=== PATIENT | male | born 1970 | race Caucasian/White ===

== ENCOUNTER 2018-03-19 00:58 | Emergency (ER) | payer MEDICAID ==
[~2018-03-19] VITALS: Ht 185.4 cm; Wt 112.0 kg
[~2018-03-19 00:58] MED LIST: GLIP10TA13 PO; GLIP5TAB10 PO; HYDR-3240 PO; LISI-170 PO; METF500T17 PO
[2018-03-19] MEDS ORDERED: METHOCARBAMOL 750 MG TABLET ONE (01:25)
[2018-03-19] MEDS ORDERED: KETOROLAC 30 MG/1 ML ONE (01:25)
[2018-03-19] MEDS ORDERED: METHOCARBAMOL 750 MG TABLET PO ONE (01:30)
[2018-03-19] MEDS ORDERED: KETOROLAC 30 MG/1 ML IM ONE (01:30)
--- NOTE | 2018-03-19 01:31 | NUR ---
LABS HAVE BEEN DRAWN. PT MEDICATED FOR PAIN. PT HAS SAFE RIDE HOME WITH
[2018-03-19 01:38] LABS: BASOPHILS # (AUTO) 0.04 x10^3/uL (0-0.1); BASOPHILS % (AUTO) 1 % (0-1); EOSINOPHILS # (AUTO) 0.12 x10^3/uL (0-0.4); EOSINOPHILS % (AUTO) 2 % (1-7); LYMPHOCYTES # (AUTO) 2.32 x10^3/uL (1-3.4); LYMPHOCYTES % (AUTO) 32 % (22-44); MD NO; MEAN CORPUSCULAR HEMOGLOBIN 29.9 pg (27.5-34.5); MEAN CORPUSCULAR HGB CONC 33.8 g/dL (33.2-36.2); MEAN CORPUSCULAR VOLUME 88.6 fL (81-97); MEAN PLATELET VOLUME 8.1 fL (7.4-10.4); MONOCYTES # (AUTO) 0.89 x10^3/uL (0.2-0.8); MONOCYTES % (AUTO) 12 % (2-9); NEUTROPHILS # (AUTO) 3.83 x10^3/uL (1.8-6.8); NEUTROPHILS % (AUTO) 53 % (42-75); PLATELET COUNT 213 x10^3/uL (130-400); RED BLOOD COUNT 4.84 x10^6/uL (4.38-5.82); RED CELL DISTRIBUTION WIDTH 13.8 % (9.4-14.8)
[2018-03-19 01:45] LABS: ALBUMIN 3.4 g/dL (3.4-5.0); ANION GAP 7 mmol/L (5-15); CALCIUM 8.7 mg/dL (8.5-10.1); CHLORIDE 100 mmol/L (98-107); CREATININE 1.08 mg/dL (0.7-1.3)
[2018-03-19 02:02] VITALS: BP 139/79
== END 2018-03-19 02:13 | disposition home or self-care (01) ==
LOC: ED 02:07
DX: E11.65 Type 2 diabetes mellitus with hyperglycemia (principal); E11.42 Type 2 diabetes mellitus with diabetic polyneuropathy; I10 Essential (primary) hypertension; F17.200 Nicotine dependence, unspecified, uncomplicated
CPT/HCPCS: 36415; 80048; 82040; 85025; 96372; 99283; J1885

== ENCOUNTER 2018-04-16 12:57 | Emergency (ER) | payer MEDICAID ==
[~2018-04-16] VITALS: Ht 185.4 cm; Wt 108.2 kg
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
--- NOTE | 2018-04-16 13:54 | NUR ---
md to bedside
[2018-04-16 13:57] LABS: BASOPHILS # (AUTO) 0.03 x10^3/uL (0-0.1); BASOPHILS % (AUTO) 0 % (0-1); EOSINOPHILS # (AUTO) 0.12 x10^3/uL (0-0.4); EOSINOPHILS % (AUTO) 1 % (1-7); LYMPHOCYTES # (AUTO) 2.26 x10^3/uL (1-3.4); LYMPHOCYTES % (AUTO) 26 % (22-44); MD NO; MEAN CORPUSCULAR HEMOGLOBIN 29.4 pg (27.5-34.5); MEAN CORPUSCULAR HGB CONC 33.3 g/dL (33.2-36.2); MEAN CORPUSCULAR VOLUME 88.2 fL (81-97); MEAN PLATELET VOLUME 7.8 fL (7.4-10.4); MONOCYTES # (AUTO) 0.79 x10^3/uL (0.2-0.8); MONOCYTES % (AUTO) 9 % (2-9); NEUTROPHILS # (AUTO) 5.45 x10^3/uL (1.8-6.8); NEUTROPHILS % (AUTO) 63 % (42-75); PLATELET COUNT 231 x10^3/uL (130-400); RED BLOOD COUNT 5.35 x10^6/uL (4.38-5.82); RED CELL DISTRIBUTION WIDTH 13.7 % (9.4-14.8)
[2018-04-16 14:11] LABS: ALANINE AMINOTRANSFERASE 28 U/L (12-78); ALBUMIN 3.6 g/dL (3.4-5.0); ANION GAP 6 mmol/L (5-15); CHLORIDE 100 mmol/L (98-107); CREATININE 1.13 mg/dL (0.7-1.3)
--- NOTE | 2018-04-16 14:12 | NUR ---
pt resting in room with at bedside. no needs at this time. vss. awaiting lab results.
[2018-04-16 14:15] LABS: ALKALINE PHOSPHATASE 93 U/L (45-117); BILIRUBIN,TOTAL 0.5 mg/dL (0.2-1.0); TOTAL PROTEIN 7.2 g/dL (6.4-8.2); TROPONIN I < 0.015 ng/mL (0.000-0.045)
[2018-04-16] MEDS ORDERED: ONDANSETRON ODT 4 MG ONE (14:44)
--- NOTE | 2018-04-16 14:59 | NUR ---
pt reports nausea. md notified. zofran ordered and administered. vss. no other needs at this time.
[2018-04-16] MEDS ORDERED: ONDANSETRON ODT 4 MG PO ONE (15:00)
--- NOTE | 2018-04-16 15:14 | NUR ---
us at bedside
--- NOTE | 2018-04-16 15:21 | NUR ---
pt reports no nausea after zofran. us at bedside. vss. no needs at this time.
--- NOTE | 2018-04-16 15:33 | NUR ---
xray at bedside.
--- NOTE | 2018-04-16 16:23 | NUR ---
all results back at this time. new orders received. vss. no neesd at this time.
[2018-04-16] MEDS ORDERED: MORPHINE SULFATE 4 MG/ML, 1ML ONE (16:25)
[2018-04-16] MEDS ORDERED: MAALOX/HYOSCYAMINE/LIDOCAINE 45 ML BTL ONE (16:26)
[2018-04-16] MEDS ORDERED: MAALOX/HYOSCYAMINE/LIDOCAINE 45 ML BTL PO ONE (16:30)
[2018-04-16] MEDS ORDERED: MORPHINE SULFATE 4 MG/ML, 1ML IVPush PRN (16:30)
[2018-04-16] MEDS ORDERED: INSULIN REGULAR 100 UNITS/ML, 3ML VIAL ONE (16:44)
[2018-04-16] MEDS ORDERED: FAMOTIDINE 20 MG/2 ML ONE (16:44)
[2018-04-16] MEDS ORDERED: FAMOTIDINE 20 MG/2 ML IVPush ONE (17:00)
[2018-04-16] MEDS ORDERED: INSULIN REGULAR 100 UNITS/ML, 3ML VIAL IVPush ONE (17:00)
[2018-04-16 18:05] VITALS: BP 119/81
--- NOTE | 2018-04-16 18:05 | NUR ---
pt resting in room with lights dimmed. vss. no needs at this time.
== END 2018-04-16 18:25 | disposition home or self-care (01) ==
LOC: ED 14:41
DX: K85.90 Acute pancreatitis without necrosis or infection, unspecified (principal); E11.65 Type 2 diabetes mellitus with hyperglycemia; E11.42 Type 2 diabetes mellitus with diabetic polyneuropathy; R10.13 Epigastric pain; I10 Essential (primary) hypertension; Z72.9 Problem related to lifestyle, unspecified
CPT/HCPCS: 36415; 71045; 76700; 80053; 82962; 83690; 83880; 84484; 85025; 85379; 93005; 96374; 96375; 99284; J3490; Q0162

== ENCOUNTER 2018-06-09 02:07 | Emergency (ER) | payer MEDICAID ==
[~2018-06-09] VITALS: Ht 185.4 cm; Wt 108.6 kg
[2018-06-09 02:10] VITALS: BP 148/84
[2018-06-09] MEDS ORDERED: LIDOCAINE-MPF 1%, 5ML INFIL ONE (02:30)
[2018-06-09] MEDS ORDERED: BACITRACIN ZINC OINT 500U/GM, 0.9 GM ONE (03:13)
== END 2018-06-09 03:33 | disposition home or self-care (01) ==
LOC: ED 03:20
DX: S61.210A Laceration without foreign body of right index finger without damage to nail, initial encounter (principal); W25.XXXA Contact with sharp glass, initial encounter; Y93.89 Activity, other specified; Y92.009 Unspecified place in unspecified non-institutional (private) residence as the place of occurrence of the external cause; Y99.8 Other external cause status
CPT/HCPCS: 12001; 99283

== ENCOUNTER 2018-08-22 22:33 | Emergency (ER) | payer MEDICAID ==
[~2018-08-22] VITALS: Ht 185.4 cm; Wt 110.0 kg
[2018-08-22 22:53] VITALS: BP 134/88
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
[2018-08-22] MEDS ORDERED: KETOROLAC 30 MG/1 ML ONE (22:59)
[2018-08-22] MEDS ORDERED: KETOROLAC 30 MG/1 ML IM ONE (23:00)
== END 2018-08-22 23:10 | disposition left against medical advice (07) ==
LOC: ED 22:59
DX: M79.672 Pain in left foot (principal); E11.9 Type 2 diabetes mellitus without complications; I10 Essential (primary) hypertension; F17.200 Nicotine dependence, unspecified, uncomplicated; Z72.9 Problem related to lifestyle, unspecified
CPT/HCPCS: 82962; 99281

== ENCOUNTER 2019-07-11 03:20 | Emergency (ER) | payer MEDICAID, OTHER ==
[~2019-07-11] VITALS: Ht 185.4 cm; Wt 104.0 kg
[2019-07-11] MEDS ORDERED: SODIUM CHLORIDE FLUSH 10ML SYR IVF ONE (03:30)
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
[2019-07-11 04:01] LABS: BASOPHILS # (AUTO) 0.05 x10^3/uL (0-0.1); BASOPHILS % (AUTO) 1 % (0-1); EOSINOPHILS # (AUTO) 0.14 x10^3/uL (0-0.4); EOSINOPHILS % (AUTO) 2 % (1-7); LYMPHOCYTES # (AUTO) 1.98 x10^3/uL (1-3.4); LYMPHOCYTES % (AUTO) 31 % (22-44); MD NO; MEAN CORPUSCULAR HEMOGLOBIN 29.7 pg (27.5-34.5); MEAN PLATELET VOLUME 7.9 fL (7.4-10.4); MONOCYTES # (AUTO) 0.65 x10^3/uL (0.2-0.8); MONOCYTES % (AUTO) 10 % (2-9); NEUTROPHILS # (AUTO) 3.58 x10^3/uL (1.8-6.8); NEUTROPHILS % (AUTO) 56 % (42-75); PLATELET COUNT 231 x10^3/uL (130-400); RED BLOOD COUNT 4.83 x10^6/uL (4.38-5.82); RED CELL DISTRIBUTION WIDTH 13.9 % (9.4-14.8)
[2019-07-11 04:10] LABS: ALANINE AMINOTRANSFERASE 21 U/L (12-78); ALBUMIN 3.3 g/dL (3.4-5.0); ANION GAP 6 mmol/L (5-15); CALCIUM 8.6 mg/dL (8.5-10.1); CHLORIDE 102 mmol/L (98-107); CREATININE 1.29 mg/dL (0.7-1.3)
[2019-07-11 04:14] LABS: ALKALINE PHOSPHATASE 143 U/L (45-117); BILIRUBIN,TOTAL 0.3 mg/dL (0.2-1.0); TOTAL PROTEIN 7.2 g/dL (6.4-8.2); TROPONIN I < 0.015 ng/mL (0.000-0.045)
[2019-07-11 04:19] VITALS: BP 116/65
[2019-07-11] MEDS ORDERED: OMNIPAQUE 350 MG/ML, 75ML BOTTLE ONE (04:37)
--- NOTE | 2019-07-11 04:53 | NUR ---
PT RESTING. EVEN RISE AND FALL OF CHEST OBSERVED. VSS. WAITING FOR CT
--- NOTE | 2019-07-11 05:36 | NUR ---
Patient given discharge instructions and they have confirmed that they understand the instructions. Patient ambulatory with steady gait.
== END 2019-07-11 05:44 ==
LOC: ED 05:43
DX: S22.42XA Multiple fractures of ribs, left side, initial encounter for closed fracture (principal); R06.02 Shortness of breath; I10 Essential (primary) hypertension; E11.9 Type 2 diabetes mellitus without complications; F17.200 Nicotine dependence, unspecified, uncomplicated; I44.4 Left anterior fascicular block; R00.0 Tachycardia, unspecified; X58.XXXA Exposure to other specified factors, initial encounter; Y93.89 Activity, other specified; Y92.098 Other place in other non-institutional residence as the place of occurrence of the external cause; Y99.8 Other external cause status
CPT/HCPCS: 36415; 71260; 80053; 83880; 84484; 85025; 93005; 99285; Q9967

== ENCOUNTER 2019-08-23 02:02 | Inpatient (IN) | payer OTHER ==
[~2019-08-23] VITALS: Ht 185.4 cm; Wt 102.9 kg
--- NOTE | 2019-08-23 02:37 | NUR ---
BREAK RN: THIS IS A 49 YO MALE COMING IN FOR CHEST PAIN STARTING 2 DAYS AGO, DENEIS ANY TRAUMA OR EVENT LEADING UP TO INITIAL CHEST PAIN. PAIN IS LOCATED ON LEFT CHEST UNDER BREAST AND RADIATES THROUGH LEFT RIBS, WORSENS WITH MOVEMENT AND DEEP BREATHING, RATED 3/10 AND STATES "I THINK THAT IS WHY I FEEL SHORT OF BREATH". RESPIRATIONS EVEN AND UNLABORED, LUNG SOUNDS CLEAR THROUGHOUT. ALSO C/O FATIGUE AND HEADACHE TODAY, FEVER NOTED IN TRIAGE. PATIENT ALSO C/O BILATERAL PAIN/SWELLING/REDNESS TO BOTH LOWER EXTREMITIES, TENDER TO PALPATION. HX T2DM. ALL MONITORING IN PLACE, NSR ON BUSINESS INSTRUCTOR. LINDSEY DALEY. REGLA, JAZZMINE TO ROOM FOR EVAL. CALL LIGHT IN REACH. PIV PLACED FOR ACCESS, LABS DRAWN.
[2019-08-23] MEDS ORDERED: ACETAMINOPHEN 325 MG TABLET ONE (02:42)
[2019-08-23] MEDS ORDERED: MORPHINE SULFATE 4 MG/ML, 1ML ONE (02:42)
[2019-08-23] MEDS ORDERED: ONDANSETRON 2MG/ML, 2ML ONE (02:43)
--- NOTE | 2019-08-23 02:56 | NUR ---
BREAK RN: IVF STARTED, GIVEN IV MEDICATIONS. PATIENT TO ULTRASOUND AT THIS TIME. WILL GIVE PO TYLENOL WHEN BACK FROM US
--- NOTE | 2019-08-23 02:57 | NUR ---
BREAK RN: REPORT GIVEN TO LOUIE WELLS RN
[2019-08-23] MEDS ORDERED: ONDANSETRON 2MG/ML, 2ML IVPush ONE (03:00)
[2019-08-23] MEDS ORDERED: ACETAMINOPHEN 325 MG TABLET PO ONE (03:00)
[2019-08-23] MEDS ORDERED: MORPHINE SULFATE 4 MG/ML, 1ML IVPush PRN (03:00)
[2019-08-23] MEDS ORDERED: SODIUM CHLORIDE 0.9% 1,000ML IVBOLUS ONE ×2 (03:00→04:00)
[2019-08-23] MEDS ORDERED: SODIUM CHLORIDE FLUSH 10ML SYR IVF ONE (03:00)
[2019-08-23 03:19] LABS: ALANINE AMINOTRANSFERASE 27 U/L (12-78); ALBUMIN 2.7 g/dL (3.4-5.0); ANION GAP 7 mmol/L (5-15); CALCIUM 8.4 mg/dL (8.5-10.1); CHLORIDE 94 mmol/L (98-107); CREATININE 1.24 mg/dL (0.7-1.3)
[2019-08-23 03:23] LABS: ALKALINE PHOSPHATASE 138 U/L (45-117); BILIRUBIN,TOTAL 0.4 mg/dL (0.2-1.0); TOTAL PROTEIN 7.7 g/dL (6.4-8.2); TROPONIN I < 0.015 ng/mL (0.000-0.045)
--- NOTE | 2019-08-23 03:35 | NUR ---
PT BACK FROM CT, TYLNEOL ADMINSITERED PER APR, PT RESTING IN BED, CALL SANDERSON AND BELONGINGS WITHIN REACH, VSS
--- NOTE | 2019-08-23 03:40 | NUR ---
CT DELAY, LAB IN ROOM.
--- NOTE | 2019-08-23 03:50 | NUR ---
PTS , SHARMILA, PHONE NUMBER - [phone]
[2019-08-23] MEDS ORDERED: OMNIPAQUE 350 MG/ML, 75ML BOTTLE ONE (04:07)
[2019-08-23] MEDS ORDERED: CEFTRIAXONE PMX 1GM/50ML 50 ML IV ONE (04:30)
[2019-08-23] MEDS ORDERED: VANCOMYCIN PER PHARMACY MC PRN ×2 (04:30→05:30)
[2019-08-23 04:51] LABS: MEAN CORPUSCULAR HEMOGLOBIN 28.4 pg (27.5-34.5); MEAN CORPUSCULAR HGB CONC 32.4 g/dL (33.2-36.2); MEAN CORPUSCULAR VOLUME 87.4 fL (81-97); MEAN PLATELET VOLUME 7.4 fL (7.4-10.4); PLATELET COUNT 240 x10^3/uL (130-400); RED BLOOD COUNT 4.12 x10^6/uL (4.38-5.82); RED CELL DISTRIBUTION WIDTH 13.3 % (9.4-14.8)
[2019-08-23] MEDS ORDERED: VANCOMYCIN 2,000 MG in SODIUM CHLORIDE 0.9% 500 ML IV ONE (05:00)
--- NOTE | 2019-08-23 05:09 | NUR ---
CALLED WITH UPDATE PER PT REQUEST, PT TO BE ADMITTED INPATIENT, DRIVING HOME AT THIS TIME
[2019-08-23] MEDS ORDERED: NITROGLYCERIN 0.4 MG/SPRAY SL PRN (05:30)
[2019-08-23] MEDS ORDERED: GUAIFENESIN/DM 200-20MG, 10ML UDC PO PRN (05:30)
[2019-08-23] MEDS ORDERED: hydrALAzine 20 MG/ML, 1ML IVPush PRN (05:30)
[2019-08-23] MEDS ORDERED: DOCUSATE 100 MG CAPSULE PO PRN (05:30)
[2019-08-23] MEDS ORDERED: ASA/APAP/ CAFFEINE TABLET PO PRN (05:30)
[2019-08-23] MEDS ORDERED: ONDANSETRON 2MG/ML, 2ML IVPush PRN (05:30)
[2019-08-23] MEDS ORDERED: METHOCARBAMOL 500 MG TABLET PO PRN (05:30)
[2019-08-23 05:45] LABS: BASOPHILS # (AUTO) 0.02 x10^3/uL (0-0.1); BASOPHILS % (AUTO) 0 % (0-1); EOSINOPHILS # (AUTO) 0.03 x10^3/uL (0-0.4); EOSINOPHILS % (AUTO) 0 % (1-7); LYMPHOCYTES # (AUTO) 1.12 x10^3/uL (1-3.4); LYMPHOCYTES % (AUTO) 13 % (22-44); MD SCAN; MONOCYTES % (AUTO) 18 % (2-9); NEUTROPHILS # (AUTO) 5.72 x10^3/uL (1.8-6.8); NEUTROPHILS % (AUTO) 68 % (42-75)
[2019-08-23 06:10] LABS: IRON LEVEL 18 mcg/dL (65-175)
[2019-08-23 06:14] LABS: % IRON SATURATION 7 % (20-55); TOTAL IRON BINDING CAPACITY 253 mcg/dL (250-450); TROPONIN I < 0.015 ng/mL (0.000-0.045)
[2019-08-23 06:16] LABS: TRANSFERRIN 196 mg/dL (200-360)
--- NOTE | 2019-08-23 06:28 | NUR ---
REPORT CALLED TO ENRIQUE RUIZ TO ASSUME CARE UPON TRANSFER
[2019-08-23] MEDS ORDERED: PHARMACOKINETIC CONSULTATION MC ONE (07:30)
[2019-08-23] MEDS ORDERED: VANCOMYCIN 2,000 MG in SODIUM CHLORIDE 0.9% 500 ML IV SCH (07:30)
[2019-08-23] MEDS ORDERED: PHARMACOKINETIC MONITORING MC PRN (07:30)
[2019-08-23 07:36] VITALS: BP 116/78
[2019-08-23] MEDS: LACTATED RINGERS 1,000 ML IV SCH ×2 (07:39→18:29)
[2019-08-23] MEDS: morphine SULFATE 10 MG/ML, 1ML IVPush PRN ×2 (07:39→11:40)
[2019-08-23] MEDS: ENOXAPARIN 40 MG/0.4 ML SQ SCH (07:39)
[2019-08-23] MEDS: NITROGLYCERIN 0.4 MG BOTTLE (25 TABS) SL PRN ×2 (07:44→09:37)
[2019-08-23] MEDS ORDERED: REGADENOSON 0.4 MG/5 ML SYRINGE ONE (08:23)
[2019-08-23] MEDS ORDERED: FAMOTIDINE 20 MG TABLET PO SCH (09:00)
[2019-08-23] MEDS: PIPERACILLIN/TAZO/PMX 3.375GM 50 ML IV SCH ×3 (09:35→21:11)
[2019-08-23] MEDS: INSULIN REGULAR 100 UNITS/ML, 3ML VIAL SQ-INSULIN SCH ×4 (09:35→21:11)
[2019-08-23] MEDS: HYDROcodone/APAP 5/325 TABLET PO PRN ×2 (12:48→18:31)
[2019-08-23 13:09] LABS: TROPONIN I < 0.015 ng/mL (0.000-0.045)
[2019-08-23 13:16] VITALS: BP 114/70
[2019-08-23] MEDS: ACETAMINOPHEN 325 MG TABLET PO PRN ×2 (13:27→20:40)
[2019-08-23 18:23] VITALS: BP 108/70
[2019-08-23] MEDS: VANCOMYCIN 2,000 MG in SODIUM CHLORIDE 0.9% 500 ML IV SCH (18:29)
[2019-08-23] MEDS: ZOLPIDEM 5MG TABLET PO PRN (20:40)
[2019-08-23] MEDS: INSULIN GLARGINE 100 UNITS/ML, PEN SQ-INSULIN SCH (21:10)
[2019-08-24] MEDS: morphine SULFATE 10 MG/ML, 1ML IVPush PRN ×2 (02:42→06:27)
[2019-08-24 02:44] VITALS: BP 114/70
[2019-08-24] MEDS: PIPERACILLIN/TAZO/PMX 3.375GM 50 ML IV SCH (06:02)
[2019-08-24 06:29] LABS: MEAN CORPUSCULAR HEMOGLOBIN 28.6 pg (27.5-34.5); MEAN CORPUSCULAR HGB CONC 32.6 g/dL (33.2-36.2); MEAN CORPUSCULAR VOLUME 87.9 fL (81-97); MEAN PLATELET VOLUME 7.6 fL (7.4-10.4); PLATELET COUNT 270 x10^3/uL (130-400); RED BLOOD COUNT 4.21 x10^6/uL (4.38-5.82); RED CELL DISTRIBUTION WIDTH 13.4 % (9.4-14.8)
[2019-08-24 06:37] VITALS: BP 110/70
[2019-08-24 06:52] LABS: CALCIUM 8.7 mg/dL (8.5-10.1); CHLORIDE 100 mmol/L (98-107)
[2019-08-24 06:59] LABS: BASOPHILS # (AUTO) 0.06 x10^3/uL (0-0.1); BASOPHILS % (AUTO) 1 % (0-1); EOSINOPHILS # (AUTO) 0.09 x10^3/uL (0-0.4); EOSINOPHILS % (AUTO) 1 % (1-7); LYMPHOCYTES # (AUTO) 1.62 x10^3/uL (1-3.4); LYMPHOCYTES % (AUTO) 17 % (22-44); MD SCAN; MONOCYTES # (AUTO) 1.74 x10^3/uL (0.2-0.8); MONOCYTES % (AUTO) 18 % (2-9); NEUTROPHILS # (AUTO) 6.22 x10^3/uL (1.8-6.8); NEUTROPHILS % (AUTO) 64 % (42-75)
[2019-08-24 07:04] LABS: CREATININE 0.94 mg/dL (0.7-1.3)
[2019-08-24] MEDS: VANCOMYCIN 2,000 MG in SODIUM CHLORIDE 0.9% 500 ML IV SCH ×2 (07:06→19:29)
[2019-08-24 07:24] LABS: ANION GAP 3 mmol/L (5-15)
[2019-08-24] MEDS: ENOXAPARIN 40 MG/0.4 ML SQ SCH (07:37)
[2019-08-24] MEDS: INSULIN REGULAR 100 UNITS/ML, 3ML VIAL SQ-INSULIN SCH (07:49)
[2019-08-24] MEDS: INSULIN GLARGINE 100 UNITS/ML, PEN SQ-INSULIN SCH ×2 (07:49→20:40)
[2019-08-24] MEDS: HYDROcodone/APAP 5/325 TABLET PO PRN (08:56)
[2019-08-24] MEDS: AMPICILLIN/SULBACTAM 3 GM in SODIUM CHLORIDE 0.9% 100 ML IV SCH ×3 (09:50→21:40)
[2019-08-24] MEDS: ACETAMINOPHEN 325 MG TABLET PO SCH ×2 (10:31→17:01)
[2019-08-24] MEDS: INSULIN LISPRO 100 UNITS/ML, PEN SQ-INSULIN SCH ×3 (10:53→20:39)
[2019-08-24] MEDS ORDERED: morphine SULFATE 10 MG/ML, 1ML IVPush PRN (11:30)
[2019-08-24 13:31] VITALS: BP 116/74
[2019-08-24 20:01] VITALS: BP 114/71
[2019-08-24] MEDS: OXYcodone 5 MG/5 ML ORAL.SOL UDC PO PRN ×2 (20:39→21:39)
[2019-08-24] MEDS: ZOLPIDEM 5MG TABLET PO PRN ×2 (20:39→21:40)
[2019-08-25 03:50] VITALS: BP 126/73
[2019-08-25] MEDS: AMPICILLIN/SULBACTAM 3 GM in SODIUM CHLORIDE 0.9% 100 ML IV SCH ×2 (03:59→08:01)
[2019-08-25] MEDS: ACETAMINOPHEN 325 MG TABLET PO SCH ×4 (03:59→23:28)
[2019-08-25 06:58] VITALS: BP 119/77
[2019-08-25] MEDS: INSULIN LISPRO 100 UNITS/ML, PEN SQ-INSULIN SCH ×4 (07:00→19:55)
[2019-08-25] MEDS: ENOXAPARIN 40 MG/0.4 ML SQ SCH (07:27)
[2019-08-25] MEDS: INSULIN GLARGINE 100 UNITS/ML, PEN SQ-INSULIN SCH ×3 (08:01→23:29)
[2019-08-25] MEDS: VANCOMYCIN 2,000 MG in SODIUM CHLORIDE 0.9% 500 ML IV SCH (08:41)
[2019-08-25] MEDS: SODIUM CHLORIDE 0.9% 1,000 ML IV SCH ×2 (08:41→23:29)
[2019-08-25] MEDS: CEFAZOLIN 2,000 MG in SODIUM CHLORIDE 0.9% 50 ML IV SCH ×2 (11:52→19:50)
[2019-08-25] MEDS ORDERED: PNEUMOC 13-VALENT VACC, 0.5 ML IM-VACC ONE (12:00)
[2019-08-25 13:27] VITALS: BP 126/80
[2019-08-25] MEDS ORDERED: CHLORHEXIDINE 15 ML UDC ONE (17:32)
[2019-08-25] MEDS ORDERED: MIDAZOLAM 1 MG/ML, 2ML ONE (20:41)
[2019-08-25] MEDS ORDERED: METOCLOPRAMIDE 5 MG/ML, 2ML IV PRN (21:00)
[2019-08-25] MEDS ORDERED: hydrALAzine 20 MG/ML, 1ML IV PRN (21:00)
[2019-08-25] MEDS ORDERED: DIAZEPAM 5 MG/ML, 2ML IV PRN ×2 (21:00)
[2019-08-25] MEDS ORDERED: ALBUTEROL SULFATE 2.5 MG/3 ML NPPB PRN (21:00)
[2019-08-25] MEDS ORDERED: ONDANSETRON 2MG/ML, 2ML IVPush PRN (21:00)
[2019-08-25] MEDS ORDERED: KETOROLAC 30 MG/1 ML IV PRN (21:00)
[2019-08-25] MEDS ORDERED: FENTANYL PF 100 MCG/2ML IV PRN (21:00)
[2019-08-25] MEDS ORDERED: LABETALOL 5MG/ML, 20ML IV PRN (21:00)
[2019-08-25] MEDS ORDERED: OXYcodone 5 MG/5 ML ORAL.SOL UDC PO PRN (21:00)
[2019-08-25] MEDS ORDERED: HYDROmorphone 1 MG/ML, 1ML INJ IV PRN (21:00)
[2019-08-25] MEDS ORDERED: MEPERIDINE/PF 25MG/0.5ML IVPush PRN (21:00)
[2019-08-25] MEDS ORDERED: PROMETHAZINE 25 MG/ML, 1ML IV PRN (21:00)
[2019-08-25] MEDS ORDERED: INSULIN SINGLE DOSE, ER ONE (21:41)
[2019-08-25 22:14] VITALS: BP 130/84
[2019-08-26] MEDS: CEFAZOLIN 2,000 MG in SODIUM CHLORIDE 0.9% 50 ML IV SCH ×3 (03:46→19:55)
[2019-08-26 03:47] VITALS: BP 144/80
[2019-08-26] MEDS: ACETAMINOPHEN 325 MG TABLET PO SCH ×4 (04:40→22:32)
[2019-08-26] MEDS: OXYcodone 5 MG/5 ML ORAL.SOL UDC PO PRN (04:40)
[2019-08-26 06:33] LABS: ANION GAP 5 mmol/L (5-15); CALCIUM 8.3 mg/dL (8.5-10.1); CHLORIDE 105 mmol/L (98-107)
[2019-08-26 06:41] LABS: CREATININE 0.92 mg/dL (0.7-1.3)
[2019-08-26 06:58] VITALS: BP 119/78
[2019-08-26] MEDS: ENOXAPARIN 40 MG/0.4 ML SQ SCH (07:31)
[2019-08-26] MEDS: INSULIN LISPRO 100 UNITS/ML, PEN SQ-INSULIN SCH ×4 (07:52→20:15)
[2019-08-26] MEDS: INSULIN GLARGINE 100 UNITS/ML, PEN SQ-INSULIN SCH ×2 (07:53→20:15)
[2019-08-26 12:44] VITALS: BP 129/80
[2019-08-26] MEDS: SODIUM CHLORIDE 0.9% 1,000 ML IV SCH (14:40)
[2019-08-26] MEDS ORDERED: OXYcodone 5 MG/5 ML ORAL.SOL UDC PO PRN (15:00)
[2019-08-26 19:10] VITALS: BP 127/84
[2019-08-26] MEDS: SENNA/DOCUSATE TABLET PO SCH (19:55)
[2019-08-26 21:58] VITALS: BP 127/84
[2019-08-27 01:48] VITALS: BP 126/77
[2019-08-27] MEDS: SODIUM CHLORIDE 0.9% 1,000 ML IV SCH (03:18)
[2019-08-27] MEDS: CEFAZOLIN 2,000 MG in SODIUM CHLORIDE 0.9% 50 ML IV SCH ×3 (03:18→19:25)
[2019-08-27] MEDS: ACETAMINOPHEN 325 MG TABLET PO SCH ×4 (04:45→21:50)
[2019-08-27] MEDS: INSULIN LISPRO 100 UNITS/ML, PEN SQ-INSULIN SCH ×4 (07:00→21:51)
[2019-08-27 07:13] VITALS: BP 129/79
[2019-08-27] MEDS ORDERED: SODIUM CHLORIDE 0.9% 1,000 ML IV SCH (08:30)
[2019-08-27] MEDS: INSULIN GLARGINE 100 UNITS/ML, PEN SQ-INSULIN SCH ×2 (09:45→21:52)
[2019-08-27] MEDS: ENOXAPARIN 40 MG/0.4 ML SQ SCH (09:45)
[2019-08-27 14:10] VITALS: BP 134/86
[2019-08-27 18:51] VITALS: BP 122/84
[2019-08-27] MEDS: SENNA/DOCUSATE TABLET PO SCH (21:00)
[2019-08-28 00:09] VITALS: BP 103/63
[2019-08-28] MEDS: CEFAZOLIN 2,000 MG in SODIUM CHLORIDE 0.9% 50 ML IV SCH ×3 (03:20→19:51)
[2019-08-28] MEDS: ACETAMINOPHEN 325 MG TABLET PO SCH ×4 (03:20→22:46)
[2019-08-28] MEDS: INSULIN LISPRO 100 UNITS/ML, PEN SQ-INSULIN SCH ×4 (07:00→19:52)
[2019-08-28] MEDS: ENOXAPARIN 40 MG/0.4 ML SQ SCH (07:39)
[2019-08-28 07:48] VITALS: BP 110/70
[2019-08-28] MEDS: INSULIN GLARGINE 100 UNITS/ML, PEN SQ-INSULIN SCH ×2 (09:58→19:52)
[2019-08-28] MEDS: SODIUM CHLORIDE 0.9% 1,000 ML IV SCH (13:01)
[2019-08-28 13:45] VITALS: BP 135/78
[2019-08-28 19:45] VITALS: BP 140/65
[2019-08-28] MEDS: SENNA/DOCUSATE TABLET PO SCH (19:52)
[2019-08-29 00:51] VITALS: BP 146/70
[2019-08-29] MEDS: CEFAZOLIN 2,000 MG in SODIUM CHLORIDE 0.9% 50 ML IV SCH ×2 (03:33→11:13)
[2019-08-29] MEDS: ACETAMINOPHEN 325 MG TABLET PO SCH ×3 (03:48→11:13)
[2019-08-29] MEDS: SODIUM CHLORIDE 0.9% 1,000 ML IV SCH (05:40)
[2019-08-29] MEDS: INSULIN LISPRO 100 UNITS/ML, PEN SQ-INSULIN SCH ×2 (07:00→11:14)
[2019-08-29] MEDS ORDERED: CARVEDILOL 3.125 MG TABLET PO SCH (07:30)
[2019-08-29 08:20] VITALS: BP 136/81
[2019-08-29] MEDS: ENOXAPARIN 40 MG/0.4 ML SQ SCH (08:29)
[2019-08-29] MEDS: INSULIN GLARGINE 100 UNITS/ML, PEN SQ-INSULIN SCH ×2 (09:00→11:14)
== END 2019-08-29 11:39 | disposition left against medical advice (07) | DRG 853 ==
LOC: ED 03:11 → EDIP 04:38 → 4WST 07:12 → 3N 08-26 10:35
PROVIDERS: ADMIT Internal Medicine; ATTEND Internal Medicine
PROC: 0QBR0ZZ Excision of Left Toe Phalanx, Open Approach (ICD-10-PCS; principal; 2019-08-25 18:00)
DX: A41.01 Sepsis due to Methicillin susceptible Staphylococcus aureus (principal); J18.0 Bronchopneumonia, unspecified organism; E87.1 Hypo-osmolality and hyponatremia; L02.612 Cutaneous abscess of left foot; L03.116 Cellulitis of left lower limb; Q21.1 Atrial septal defect; D64.9 Anemia, unspecified; E11.65 Type 2 diabetes mellitus with hyperglycemia; E11.621 Type 2 diabetes mellitus with foot ulcer; E11.69 Type 2 diabetes mellitus with other specified complication; E66.9 Obesity, unspecified; E87.8 Other disorders of electrolyte and fluid balance, not elsewhere classified; E88.09 Other disorders of plasma-protein metabolism, not elsewhere classified; F15.10 Other stimulant abuse, uncomplicated; F17.210 Nicotine dependence, cigarettes, uncomplicated; I10 Essential (primary) hypertension; I25.10 Atherosclerotic heart disease of native coronary artery without angina pectoris; Z20.828 Contact with and (suspected) exposure to other viral communicable diseases; L03.032 Cellulitis of left toe; L97.519 Non-pressure chronic ulcer of other part of right foot with unspecified severity; Z82.49 Family history of ischemic heart disease and other diseases of the circulatory system; Z83.3 Family history of diabetes mellitus; Z86.711 Personal history of pulmonary embolism; Z86.718 Personal history of other venous thrombosis and embolism; Z68.29 Body mass index [BMI] 29.0-29.9, adult; Z53.29 Procedure and treatment not carried out because of patient's decision for other reasons
CPT/HCPCS: 36415; 71275; 78452; 80048; 80053; 80074; 80202; 82330; 82728; 82962; 83036; 83540; 83550; 83605; 83735; 84100; 84145; 84443; 84466; 84484; 85025; 85651; 86140; 87040; 87070; 87075; 87077; 87147; 87186; 87205; 87521; 87635; 87806; 93005; 93017; 93306; 93922; 96361; 96374; 96375; G0378; J0295; J0690; J0696; J1650; J1815; J2250; J2405; J2543; J2785; J3370; Q9967; A9502; G0009; G0475; J2270; J7030; J7040; J7120